=== PATIENT | male | born 1945 | race Caucasian/White ===

== ENCOUNTER 2020-12-25 18:43 | Emergency (ER) | payer OTHER, MEDICARE, BC ==
[~2020-12-25] VITALS: Ht 188 cm; Wt 108.9 kg
[2020-12-25] MEDS ORDERED: SERT50 PO (20:42)
[2020-12-25] MEDS ORDERED: METF500 PO (20:42)
[2020-12-25] MEDS ORDERED: PRAZ2 PO (20:42)
[2020-12-25] MEDS ORDERED: Simvastatin40 MG PO (20:43)
[2020-12-25 20:45] LABS: Calcium, Ionized (POC) 1.24 mmol/L (1.10-1.46); Chloride (POC) 101 mmol/L (98-108); Creatinine (POC) 0.7 mg/dL (0.8-1.3); Glucose (ISTAT POC) 74 mg/dL (70-99); Hemoglobin (POC) 14.6 g/dL (13.5-17.5); Potassium (POC) 4.1 mmol/L (3.5-5.5); Sodium (POC) 141 mmol/L (135-148); Total CO2 (POC) 30 mmol/L (21-32)
== END 2020-12-26 00:15 | disposition home or self-care (01) ==
LOC: ER 18:43
PROVIDERS: Emergency Medicine
DX: S12.000A Unspecified displaced fracture of first cervical vertebra, initial encounter for closed fracture (principal); I44.1 Atrioventricular block, second degree; E11.9 Type 2 diabetes mellitus without complications; E78.5 Hyperlipidemia, unspecified; Z79.899 Other long term (current) drug therapy; Z79.84 Long term (current) use of oral hypoglycemic drugs; W06.XXXA Fall from bed, initial encounter
CPT/HCPCS: 36415; 70450; 70498; 72125; 80047; 85014; 93005; 93010; 96360; 99284-25; J7030; Q9967